=== PATIENT | male | born 1995 | race Caucasian/White ===

== ENCOUNTER 2021-08-03 04:46 | Emergency (ER) | payer SELFPAY ==
[2021-08-03 05:17] VITALS: BP 145/86; PULSE 83
[2021-08-03] MEDS ORDERED: Sodium Chloride 0.9% 10 ML Syringe FLUSH PRN (05:21)
[2021-08-03] MEDS: Sodium Chloride 0.9% 1,000 ML IV SCH ×3 (05:26→07:33)
--- NOTE | 2021-08-03 05:32 | EDM.PDOC ---
ED HPI GENERAL MEDICAL PROBLEM - General Chief Complaint: General Stated Complaint: chills, jumping legs Time Seen by Provider: 08/03/21 05:15 Source of Information: Reports: Patient History Limitations: Reports: No Limitations - History of Present Illness INITIAL COMMENTS - FREE TEXT/NARRATIVE: Patient presents to the ED not feeling well. He states that he is on suboxone therapy for fentanyl abuse and was doing well until late last week. He gained knowledge of a friend coming to town on the 3rd so decided to stop his suboxone on the . He ended up doing a large amount of fentanyl on the 3rd and managed to get high but " it took a lot". he came down from the high and had body aches, muscle aches and felt chilled. he took a suboxone last night and this morning in efforts to help how he feels. He has not been eating or drinking much. Has had some loose stools in the last couple of days but no black or blood. No cough. He drinks a pot of coffee a day and mutliple energy drinks. He spent the night last night sitting in his truck waiting for his girlfriend to be seen and discharged from the Ed with similar problems. Her ED visit did last about 5 hours. He took her home and came back. He is managed with a local doctor for suboxone therapy and has upcoming appointment this week. Onset Date: 07/31/21 Duration: Getting Worse Location: Reports: Generalized Associated Symptoms: Reports: Loss of Appetite, Weakness, Other (muscle aches and pains. ) Treatments [employer]: Reports: Other (see below) (suboxone) - Related Data Allergies Allergy/AdvReac Type Severity Reaction Status Date / Time No Known Allergies Allergy Verified 08/03/21 04:57 Home Meds: Home Meds Buprenorphine HCl/Naloxone HCl [Suboxone 4 mg-1 mg Sl Film] 1 each SL DAILY 08/03/21 [History] Past Medical History - Past Health History Medical/Surgical History: Denies Medical/Surgical History Psychiatric History: Reports: Anxiety, Depression - History Comment History Comment: history of fentanyl abuse, on suboxone therapy Social & Family History - Family History Family Medical History: No Pertinent Family History - Tobacco Use Tobacco Use Status *Q: Current Every Day Tobacco User Years of Tobacco use: 18 Packs/Tins Daily: 1 - Caffeine Use Caffeine Use: Reports: Coffee, Energy Drinks - Recreational Drug Use Recreational Drug Use: Yes Drug Use in Last 12 Months: Yes Recreational Drug Type: Reports: Fentanyl, Marijuana/Hashish Recreational Drug Use Frequency: Binges Recreational Drug Last Use: 07/31 ( stopped suboxone on 07/30, resumed it on 08/02) ED ROS GENERAL - Review of Systems Review Of Systems: See Below Constitutional: Reports: Chills, Malaise, Weakness, Fatigue, Decreased Appetite. Denies: Fever HEENT: Reports: No Symptoms. Denies: Eye Discharge, Throat Pain, Throat Swelling, Other Respiratory: Reports: No Symptoms. Denies: Shortness of Breath, Cough Cardiovascular: Reports: No Symptoms. Denies: Chest Pain, Dyspnea on Exertion, Edema Endocrine: Reports: Fatigue GI/Abdominal: Reports: Anorexia, Diarrhea, Decreased Appetite. Denies: Abdominal Pain, Black Stool, Bloody Stool : Reports: Other (decreased urine). Denies: Dysuria Musculoskeletal: Reports: Muscle Pain Skin: Reports: No Symptoms Neurological: Reports: Headache Psychiatric: Reports: Agitation, Anxiety, Mood Lability ED EXAM, GENERAL - Physical Exam Exam: See Below Exam Limited By: No Limitations General Appearance: Alert, WD/WN, No Apparent Distress, Other (cooperative, displays capacity, answers questions well) Eye Exam: Bilateral Eye: EOMI, Normal Inspection, PERRL Ears: Normal External Exam, Hearing Grossly Normal Nose: Normal Inspection, Normal Mucosa, No Blood Throat/Mouth: Normal Lips, Normal Teeth, Normal Voice, Other (very dry mucous membranes) Head: Atraumatic Neck: Normal Inspection, Supple, Non-Tender, Full Range of Motion. No: Lymphadenopathy (L), Lymphadenopathy (R) Respiratory/Chest: No Respiratory Distress, Lungs Clear, Normal Breath Sounds, No Accessory Muscle Use, Chest Non-Tender Cardiovascular: Normal Peripheral Pulses, Regular Rate, Rhythm, No Edema, No Murmur GI/Abdominal: Normal Bowel Sounds, Soft, Non-Tender, No Organomegaly, No Abnormal Bruit Back Exam: Normal Inspection, Full Range of Motion. No: CVA Tenderness (L), CVA Tenderness (R) Extremities: Normal Inspection, Normal Range of Motion, Non-Tender Neurological: Alert, Oriented, CN II-XII Intact, Normal Cognition, Normal Gait, No Motor/Sensory Deficits Psychiatric: Anxious, Tearful Skin Exam: Normal Color, No Rash Course - Vital Signs Last Recorded V/S: Last Vital Signs Temp 36.2 C 08/03/21 04:58 Pulse 83 08/03/21 04:58 Resp 18 08/03/21 04:58 BP 145/86 H 08/03/21 04:58 Pulse Ox 100 08/03/21 04:58 - Orders/Labs/Meds Orders: Active Orders 24 hr Category Date Time Status Peripheral IV Care [RC] . DIRECTED Care 08/03/21 05:22 Active Sodium Chloride 0.9% [Normal Saline] 1,000 ml Med 08/03/21 05:30 Active IV ASDIRECTED Sodium Chloride 0.9% [Saline Flush] Med 08/03/21 05:21 Active 10 ml FLUSH ASDIRECTED PRN Peripheral IV Insertion Adult [OM.PC] Routine Oth 08/03/21 05:21 Ordered Medication Orders Sodium Chloride (Normal Saline) 1,000 mls @ 999 mls/hr IV ASDIRECTED MOISES Stop: 08/05/21 06:31 Last Admin: 08/03/21 07:33 Dose: 999 mls/hr Documented by: Infusion: 08/03/21 07:31 Dose: 999 mls/hr Documented by: Admin: 08/03/21 06:30 Dose: 999 mls/hr Documented by: Infusion: 08/03/21 06:27 Dose: 999 mls/hr Documented by: Admin: 08/03/21 05:26 Dose: 999 mls/hr Documented by: BELIMIC Sodium Chloride (Sodium Chloride 0.9% 10 Ml Syringe) 10 ml FLUSH ASDIRECTED PRN PRN Reason: Keep Vein Open Labs: Laboratory Tests 08/03/21 08/03/21 08/03/21 Range/Units 05:16 05:21 05:21 WBC 9.9 (4.0-11.0) 10^3/uL RBC 4.80 (4.50-6.00) x10^6/uL Hgb 14.2 (14.0-18.0) g/dL Hct 42.5 (42.0-52.0) % MCV 88.5 (83.0-97.0) fL MCH 29.6 (27.0-32.0) pg MCHC 33.4 (32.0-36.0) g/dL RDW Coeff of Katie 13.5 (11.0-15.0) % Plt Count 190 (150-400) 10^3/uL Immature Gran % (Auto) 0.0 (0.0-4.9) % Neut % (Auto) 66.8 (41-71) % Lymph % (Auto) 25.1 (24-44) % Geary % (Auto) 6.4 (0-10) % Eos % (Auto) 1.4 (0-6) % Baso % (Auto) 0.3 (0-1) % Neut # (Auto) 6.63 (1.80-8.00) x10^3/uL Lymph # (Auto) 2.49 (0.60-5.00) 10^3/uL Geary # (Auto) 0.64 (0.00-1.50) 10^3/uL Eos # (Auto) 0.14 (0.00-1.50) 10^3/uL Baso # (Auto) 0.03 (0.00-0.50) 10^3/uL Immature Gran # (Auto) 0.00 (0.00-0.49) 10^3/uL Sodium 146 H (136-145) mEq/L Potassium 3.7 (3.5-5.0) mEq/L Chloride 108 H (98-106) mEq/L Carbon Dioxide 30 (21-32) mmol/L BUN 11 (7-18) mg/dL Creatinine 1.0 (0.7-1.3) mg/dL Est Cr Clr Drug Dosing TNP Estimated GFR (MDRD) > 60 (>=60) mL/min Glucose 99 (75-99) mg/dL Calcium 9.3 (8.4-10.1) mg/dL Magnesium 2.1 (1.8-2.4) mg/dL Total Bilirubin 0.4 (0.0-1.0) mg/dL AST 9 L (15-37) U/L ALT 16 (12-78) U/L Alkaline Phosphatase 54 (46-116) U/L Creatine Kinase 62 (35-232) U/L C-Reactive Protein < 0.2 L (0.2-0.8) mg/dL Total Protein 6.3 L (6.4-8.2) g/dL Albumin 3.6 (3.4-5.0) g/dL Urine Color (YELLOW) Urine Appearance (CLEAR) Urine pH (4.5-8.0) Ur Specific [place] (1.003-1.020) Urine Protein (NEGATIVE) mg/dL Urine Glucose (UA) (NEGATIVE) mg/dL Urine Ketones (NEGATIVE) mg/dL Urine Occult Blood (NEGATIVE) Urine Nitrite (NEGATIVE) Urine Bilirubin (NEGATIVE) Urine Urobilinogen (0.2-1.0) EU/dL Ur Leukocyte Esterase (NEGATIVE) Urine Opiates Screen (NEGATIVE) Ur Oxycodone Screen (NEGATIVE) Urine Methadone Screen (NEGATIVE) Ur Barbiturates Screen (NEGATIVE) U Tricyclic Antidepress (NEGATIVE) Ur Phencyclidine Scrn (NEGATIVE) Ur Amphetamine Screen (NEGATIVE) U Methamphetamines Scrn (NEGATIVE) Urine MDMA Screen (NEGATIVE) U Benzodiazepines Scrn (NEGATIVE) Urine Cocaine Screen (NEGATIVE) U Marijuana (THC) Screen (NEGATIVE) Ethyl Alcohol 0 (0-3) mg/dL SARS CoV-2 RNA Rapid KENIA Negative (NEGATIVE) 08/03/21 08/03/21 Range/Units 05:28 05:40 WBC (4.0-11.0) 10^3/uL RBC (4.50-6.00) x10^6/uL Hgb (14.0-18.0) g/dL Hct (42.0-52.0) % MCV (83.0-97.0) fL MCH (27.0-32.0) pg MCHC (32.0-36.0) g/dL RDW Coeff of Katie (11.0-15.0) % Plt Count (150-400) 10^3/uL Immature Gran % (Auto) (0.0-4.9) % Neut % (Auto) (41-71) % Lymph % (Auto) (24-44) % Geary % (Auto) (0-10) % Eos % (Auto) (0-6) % Baso % (Auto) (0-1) % Neut # (Auto) (1.80-8.00) x10^3/uL Lymph # (Auto) (0.60-5.00) 10^3/uL Geary # (Auto) (0.00-1.50) 10^3/uL Eos # (Auto) (0.00-1.50) 10^3/uL Baso # (Auto) (0.00-0.50) 10^3/uL Immature Gran # (Auto) (0.00-0.49) 10^3/uL Sodium (136-145) mEq/L Potassium (3.5-5.0) mEq/L Chloride (98-106) mEq/L Carbon Dioxide (21-32) mmol/L BUN (7-18) mg/dL Creatinine (0.7-1.3) mg/dL Est Cr Clr Drug Dosing Estimated GFR (MDRD) (>=60) mL/min Glucose (75-99) mg/dL Calcium (8.4-10.1) mg/dL Magnesium (1.8-2.4) mg/dL Total Bilirubin (0.0-1.0) mg/dL AST (15-37) U/L ALT (12-78) U/L Alkaline Phosphatase (46-116) U/L Creatine Kinase (35-232) U/L C-Reactive Protein (0.2-0.8) mg/dL Total Protein (6.4-8.2) g/dL Albumin (3.4-5.0) g/dL Urine Color Yellow (YELLOW) Urine Appearance Clear (CLEAR) Urine pH 7.0 (4.5-8.0) Ur Specific [place] 1.010 (1.003-1.020) Urine Protein Negative (NEGATIVE) mg/dL Urine Glucose (UA) Negative (NEGATIVE) mg/dL Urine Ketones Negative (NEGATIVE) mg/dL Urine Occult Blood Negative (NEGATIVE) Urine Nitrite Negative (NEGATIVE) Urine Bilirubin Negative (NEGATIVE) Urine Urobilinogen 0.2 (0.2-1.0) EU/dL Ur Leukocyte Esterase Negative (NEGATIVE) Urine Opiates Screen Negative (NEGATIVE) Ur Oxycodone Screen Negative (NEGATIVE) Urine Methadone Screen Negative (NEGATIVE) Ur Barbiturates Screen Negative (NEGATIVE) U Tricyclic Antidepress Negative (NEGATIVE) Ur Phencyclidine Scrn Negative (NEGATIVE) Ur Amphetamine Screen Negative (NEGATIVE) U Methamphetamines Scrn Negative (NEGATIVE) Urine MDMA Screen Negative (NEGATIVE) U Benzodiazepines Scrn Negative (NEGATIVE) Urine Cocaine Screen Negative (NEGATIVE) U Marijuana (THC) Screen Positive H (NEGATIVE) Ethyl Alcohol (0-3) mg/dL SARS CoV-2 RNA Rapid KENIA (NEGATIVE) Meds: Medications Generic Name Dose Route Start Last Admin Trade Name Vilma PRN Reason Stop Dose Admin Sodium Chloride 1,000 mls @ 999 mls/hr 08/03/21 05:30 12 07:33 Normal Saline IV 08/05/21 06:31 999 mls/hr ASDIRECTED MOISES Administration Sodium Chloride 10 ml 08/03/21 05:21 Sodium Chloride 0.9% 10 Ml Syringe FLUSH ASDIRECTED PRN Keep Vein Open Discontinued Medications Generic Name Dose Route Start Last Admin Trade Name Freq PRN Reason Stop Dose Admin Haloperidol Lactate 2.5 mg 08/03/21 07:44 Haloperidol Lactate 5 Mg/Ml Sdv IVPUSH 08/03/21 07:45 ONETIME ONE Lorazepam 2 mg 08/03/21 06:27 08/03/21 06:36 Lorazepam 2 Mg/Ml Syringe IVPUSH 08/03/21 06:28 2 mg ONETIME ONE Administration - Re-Assessments/Exams Free Text/Narrative Re-Assessment/Exam: 08/03/21 05:36 discussed with the patient that he has put himself in withdrawal from the suboxone followed by withdrawal from a large amount of heroin. probable elevated CK. negative covid. Will give IV fluids x 3 liters and check labs to ensure no rhabdomyolysis or renal issue along with electrolyte issues. Strongly suggested reaching out to his suboxone therapy physician as he may need induction treatment and higher doses. 08/03/21 05:40 08/03/21 06:36 Labs are normal, patient is experiencing suboxone withdrawal. Patient only too 1/2 of a tablet as he is out of them. This facility does not have any available. will give ativan 2 mg IVP. discussed need to Contact Dr. Munson at 8 am to get induction dosing for withdrawal. Labs are otherwise normal and symptoms are consistent with withdrawal 08/03/21 07:47 continues to be anxious. will give a dose of haldol 2.5 mg. Needs to call his suboxone provider Departure - Departure Time of Disposition: 08:00 Disposition: Home, Self-Care 01 Condition: Good Clinical Impression: Withdrawal complaint, Fentanyl use disorder, mild, on maintenance therapy, abuse - Discharge Information *PRESCRIPTION DRUG MONITORING PROGRAM REVIEWED*: No *COPY OF PRESCRIPTION DRUG MONITORING REPORT IN PATIENT PEPPER: No Instructions: Opioid Withdrawal Treatment, Illegal Drug Use Information, Adult Referrals: Matty Munson MD [Primary Care Provider] - Forms: ED Department Discharge Additional Instructions: contact DR. Munson for continued management with suboxone induction for withdrawal or alternate therapy. Call today. Do not drive until after 2 pm today due to IV medications. Sepsis Event Note (ED) - Evaluation Sepsis Screening Result: No Definite Risk - Focused Exam Vital Signs: Vital Signs Temp Pulse Resp BP Pulse Ox 08/03/21 04:58 36.2 C 83 18 145/86 H 100 - My Orders Last 24 Hours: My Active Orders 08/03/21 05:21 Sodium Chloride 0.9% [Saline Flush] 10 ml FLUSH ASDIRECTED PRN Peripheral IV Insertion Adult [OM.PC] Routine 08/03/21 05:22 Peripheral IV Care [RC] . DIRECTED 08/03/21 05:30 Sodium Chloride 0.9% [Normal Saline] 1,000 ml IV ASDIRECTED - Assessment/Plan Last 24 Hours: My Active Orders 08/03/21 05:21 Sodium Chloride 0.9% [Saline Flush] 10 ml FLUSH ASDIRECTED PRN Peripheral IV Insertion Adult [OM.PC] Routine 08/03/21 05:22 Peripheral IV Care [RC] . DIRECTED 08/03/21 05:30 Sodium Chloride 0.9% [Normal Saline] 1,000 ml IV ASDIRECTED
[2021-08-03 05:42] LABS: CHLORIDE,CL 108 mEq/L (98-106); SODIUM,NA 146 mEq/L (136-145)
[2021-08-03] MEDS ORDERED: LORazepam 2 MG/ML Syringe IVPUSH ONE (06:27)
[2021-08-03 07:09] LABS: AMPHETAMINES,URINE NEGATIVE (NEGATIVE); BARBITURATES,URINE NEGATIVE (NEGATIVE); BENZODIAZEPINE,URINE NEGATIVE (NEGATIVE); MDMA (ECSTASY), URINE NEGATIVE (NEGATIVE); METHADONE,URINE NEGATIVE (NEGATIVE); METHAMPHETAMINES,URINE NEGATIVE (NEGATIVE); OPIATES,URINE NEGATIVE (NEGATIVE); OXYCODONE,URINE NEGATIVE (NEGATIVE); PHENCYCLIDINE,URINE NEGATIVE (NEGATIVE); TCA,URINE NEGATIVE (NEGATIVE)
[2021-08-03] MEDS ORDERED: Haloperidol Lactate 5 MG/ML SDV IVPUSH ONE (07:44)
== END 2021-08-03 08:45 | disposition home or self-care (01) ==
LOC: CC.ED 04:46
DX: F11.13 Opioid abuse with withdrawal (principal); Z72.0 Tobacco use; Z20.822 Contact with and (suspected) exposure to COVID-19
CPT/HCPCS: 36415; 80053; 80305-QW; 80307; 81003; 82550; 83735; 85025; 86140; 96374; 99284-25; J2060; J7030; U0002

== ENCOUNTER → 2024-02-03 | Day surgery (SDC) | payer SELFPAY ==
[~2024-02-03] MED LIST: Ketamine 200 MG/20 ML MDV ONE; Lidocaine 2% 20 ML MDV ONE; Midazolam 1 MG/ML 2 ML SDV ONE; Propofol 200 MG/20 ML SDV ONE
[2024-02-03] MEDS: Lactated Ringers 1,000 ML IV SCH (12:04)
[2024-02-03 13:51] VITALS: BP 116/67; PULSE 68
== END ==
LOC: CC.SDS 11:32
PROVIDERS: ATTEND Family Medicine
DX: K29.50 Unspecified chronic gastritis without bleeding (principal); K22.10 Ulcer of esophagus without bleeding; K21.00 Gastro-esophageal reflux disease with esophagitis, without bleeding; F32.2 Major depressive disorder, single episode, severe without psychotic features; F11.90 Opioid use, unspecified, uncomplicated; Z79.899 Other long term (current) drug therapy
CPT/HCPCS: 00731; 87081; J2250; J2704; J3490; J7120